=== PATIENT | female | born 1945 ===

== ENCOUNTER 2016-05-23 13:55 | Observation (INO) | payer MEDICARE, OTHER ==
--- NOTE | 2016-05-23 14:13 | CP.PCM.PN ---
Subjective - Date & Time of Evaluation Date of Evaluation: 05/23/16 Time of Evaluation: 13:50 - Subjective Subjective: PGY-1 Rapid response Note Rapid response was call at 1:40 PM. Patient was in oncology radiology to get a PET scan for a lung nodule. When the nurse was attempting to insert an IV patient began to feel lightheaded with darkening vision. Patient was seated in a chair at the time of the event, she did not have LOC. There was no trauma. Rapid response was called. Patients vitals were stable. At 1:50 patient was taken to the ED. Patients vitals BP was 118/61, pulse was 72, SaO2 97. Patient states that the vision changes and lightheadedness was gone and she felt well. Objective - Constitutional Appears: No Acute Distress - Head Exam Head Exam: ATRAUMATIC, NORMOCEPHALIC - Eye Exam Eye Exam: Normal appearance - ENT Exam ENT Exam: Mucous Membranes Moist - Respiratory Exam Respiratory Exam: Clear to Ausculation Bilateral, NORMAL BREATHING PATTERN. absent: Rhonchi, Wheezes, Respiratory Distress - Cardiovascular Exam Cardiovascular Exam: REGULAR RHYTHM. absent: Tachycardia, Murmur - GI/Abdominal Exam GI & Abdominal Exam: Soft, Normal Bowel Sounds. absent: Distended, Firm, Guarding, Tenderness - Extremities Exam Extremities Exam: Pedal Edema. absent: Normal Inspection - Neurological Exam Neurological Exam: Alert, Awake, Oriented x3 - Skin Skin Exam: Dry, Intact, Normal Color, Warm Assessment and Plan - Assessment and Plan (Free Text) Assessment: 70 yo female had rapid response called for near syncope. Patient presented for outpatient PET scan. Patients vitals were stable and her vision changes, lightheadedness spontaneously resolved and the patient was taken to the Emergency department for further work up.
[2016-05-23] MEDS ORDERED: Sodium Chloride 0.9% 1,000 ML IV ONE (14:16)
[2016-05-23 14:24] LABS: ADD MANUAL DIFF? NO
[2016-05-23 14:26] LABS: BASO # 0.02 K/mm3 (0.0-2.0); BASO % 0.2 % (0.0-3.0); EOS # 0.1 (0.0-0.7); EOS % 1.5 % (1.5-5.0); GRAN # 4.94 (1.4-6.5); GRAN % 54.7 % (50.0-68.0); HEMATOCRIT 37.8 % (36.0-48.0); LYMPH # 3.4 (1.2-3.4); LYMPH % 37.6 % (22.0-35.0); MEAN CELL VOLUME 87.7 fL (80.0-105.0); MEAN CORPUSCULAR HEMOGLOBIN 29.5 pg (25.0-35.0); MEAN CORPUSCULAR HGB CONC 33.6 g/dl (31.0-37.0); MEAN PLATELET VOLUME 10.3 fl (7.0-11.0); MONO # 0.5 (0.1-0.6); PLATELET COUNT 316 10^3/uL (120.0-450.0); RED CELL DISTRIBUTION WIDTH 13.8 % (11.5-14.5)
[2016-05-23 14:37] LABS: ALKALINE PHOSPHATASE 85 U/L (38-133); ALT/SGPT 13 U/L (7-56); AST/SGOT 31 U/L (15-39); BILIRUBIN,TOTAL 0.7 mg/dL (0.2-1.3); BLOOD UREA NITROGEN 18 mg/dL (7-21); CALCIUM 9.3 mg/dL (8.4-10.5); CARBON DIOXIDE 26 mmol/L (21-33); CHLORIDE 102 mmol/L (98-107); GFR AFRICAN-AMERICAN > 60; GLUCOSE,RANDOM 83 mg/dL (70-110); POTASSIUM 3.9 mmol/L (3.6-5.0); SODIUM 139 mmol/L (132-148); TOTAL PROTEIN 7.8 g/dL (5.8-8.3)
[2016-05-23 14:39] LABS: INR 1.06 (0.93-1.08); PARTIAL THROMBOPLASTIN TIME 27.5 Seconds (23.7-30.8)
[2016-05-23 14:48] LABS: TROPONIN I < 0.01 ng/mL
--- NOTE | 2016-05-23 15:01 | RAD ---
HISTORY: admission COMPARISON: No prior. FINDINGS: LUNGS: A right upper lobe 2 cm pulmonary nodule /mass is suggested . Pro asymmetrical prominent left basal nipple shallow versus 2nd nodule PLEURA: No significant pleural effusion identified, no pneumothorax apparent. CARDIOVASCULAR: Top-normal save OSSEOUS STRUCTURES: Thoracic spondylosis VISUALIZED UPPER ABDOMEN: Normal. OTHER FINDINGS: None. IMPRESSION: Right upper lobe 2 cm pulmonary nodule/mass. Malignancy needs to be considered. Follow-up CT chest imaging recommended The reason for this exam is admission. Findings were directly discussed with Dr. Luis Alberto Rawls in the emergency room on 05/23/2016 at approximately 3 o
--- NOTE | 2016-05-23 15:24 | ED PDOC ---
Arrival/HPI - General Chief Complaint: Syncope Time Seen by Provider: 05/23/16 14:09 Historian: Patient - History of Present Illness Narrative History of Present Illness (Text): 05/23/16 16:15 70yo female with history of Osterporosis brought to ED from PET scan for near syncopal episode. Per the PET tech, pt suddenly had a near syncopal episode, after he injected NS in preparation of doing a PET scan. she noted headache for two days. states she has been dizzy for the past two days. PT states she was seen at [facility] last week for headache left arm numbness and was discharged after serial test. States she was referred for PET scan because nodule was noted on her chest CT last week. She denies chest pain, SOb, nausea, vomiting, focal neurological deficit, any other complaint. Past Medical History - Provider Review Nursing Documentation Reviewed: Yes - Infectious Disease Hx of Infectious Diseases: None - Tetanus Immunization Tetanus Immunization: Unknown - Reproductive Menopause: Yes - Cardiac Hx Cardiac Disorders: No - Neurological Hx Neurological Disorder: No - HEENT Hx Cataracts: No - Renal Hx Renal Disorder: No - Hematological/Oncological Hx Anemia: Yes - Musculoskeletal/Rheumatological Hx Falls: No - Psychiatric Hx Anxiety: Yes Hx Substance Use: No - Anesthesia Hx Anesthesia: No Family/Social History - Physician Review Nursing Documentation Reviewed: Yes Family/Social History: Unknown Family HX Smoking Status: Former Smoker Hx Alcohol Use: No Hx Substance Use: No Allergies/Home Meds Allergies/Adverse Reactions: Allergies latex Allergy (Verified 05/23/16 14:20) RASH Home Medications: Home Meds Medication Instructions Recorded Confirmed Raloxifene [Evista] 60 mg PO QOTHERDAY 05/23/16 05/23/16 Review of Systems - Physician Review All systems were reviewed & negative as marked: Yes - Review of Systems Constitutional: Normal Eyes: Normal ENT: Normal Respiratory: Normal Cardiovascular: Normal Gastrointestinal: Normal Genitourinary Female: Normal Musculoskeletal: Normal Skin: Normal Neurological: Headache, Dizziness. absent: Focal Weakness, Gait Changes, Speech Changes, Facial Droop Endocrine: Normal Hemo/Lymphatic: Normal Psychiatric: Normal Physical Exam Vital Signs Reviewed: Yes Vital Signs Temp Pulse Resp BP Pulse Ox 05/23/16 15:55 81 20 139/71 98 05/23/16 13:55 98.4 F 70 20 128/80 100 Temperature: Afebrile Blood Pressure: Normal Pulse: Regular Respiratory Rate: Normal Appearance: Positive for: Well-Appearing, Non-Toxic, Comfortable Pain Distress: None Mental Status: Positive for: Alert and Oriented X 3 Finger Stick Blood Glucose: 84 - Systems Exam Head: Present: Atraumatic, Normocephalic Pupils: Present: PERRL Extroacular Muscles: Present: EOMI Conjunctiva: Present: Normal Mouth: Present: Moist Mucous Membranes Neck: Present: Normal Range of Motion Respiratory/Chest: Present: Clear to Auscultation, Good Air Exchange. No: Respiratory Distress, Accessory Muscle Use Cardiovascular: Present: Regular Rate and Rhythm, Normal S1, S2. No: Murmurs Abdomen: Present: Normal Bowel Sounds. No: Tenderness, Distention, Peritoneal Signs Back: Present: Normal Inspection Upper Extremity: Present: Normal Inspection. No: Cyanosis, Edema Lower Extremity: Present: Normal Inspection. No: Edema Neurological: Present: GCS=15, CN II-XII Intact, Speech Normal, Motor Func Grossly Intact, Normal Sensory Function, Normal Cerebellar Funct, Norm Deep Tendon Reflexes, Memory Normal, Normal 2Pt Descrimination, Other (No focal neurological deficit) Skin: Present: Warm, Dry, Normal Color. No: Rashes Psychiatric: Present: Alert, Oriented x 3, Normal Insight, Normal Concentration Medical Decision Making ED Course and Treatment: 05/24/16 00:56 PT presented for stated history. She was AAO x3 in ED. Neurological intact. Lab was unremarkable. Head CT negative. Pt will be placed on OBS for near syncope Case was NITIN Morales. He accepted pt into his service. Result and Plan was DW the pt and she agreed. - Lab Interpretations Lab Results: 05/23/16 14:05 05/23/16 14:05 Lab Results 05/23/16 14:05: WBC 9.0, RBC 4.31, Hgb 12.7, Hct 37.8, MCV 87.7, MCH 29.5, MCHC 33.6, RDW 13.8, Plt Count 316, MPV 10.3, Gran % 54.7, Lymph % (Auto) 37.6 H, [place] % (Auto) 6.0, Eos % (Auto) 1.5, Baso % (Auto) 0.2, Gran # 4.94, Lymph # 3.4 , [place] # 0.5, Eos # 0.1, Baso # 0.02, PT 11.4, INR 1.06, APTT 27.5, Sodium 139, Potassium 3.9, Chloride 102, Carbon Dioxide 26, Anion Gap 15, BUN 18, Creatinine 0.8, Est GFR ( Amer) > 60, Est GFR (Non-Af Amer) > 60, Random Glucose 83, Calcium 9.3, Total Bilirubin 0.7, AST 31, ALT 13, Alkaline Phosphatase 85, Troponin I < 0.01, Total Protein 7.8, Albumin 3.8, Globulin 4.0 , Albumin/Globulin Ratio 1.0 L - RAD Interpretation Radiology Orders: 05/23/16 14:15 CHEST PORTABLE [RAD] Stat 05/23/16 15:01 HEAD W/O CONTRAST [CT] Stat - EKG Interpretation Interpreted by ED Physician: Yes (NSR @71bpm) - Medication Orders Current Medication Orders: Aspirin (Ecotrin) 325 mg PO DAILY GUILLERMO Atorvastatin Calcium (Lipitor) 40 mg PO DIN [facility] Last Admin: 05/23/16 23:39 Dose: 40 MG Enoxaparin Sodium (Lovenox) 40 mg SC DAILY [facility] PRN Reason: Protocol Last Admin: 05/23/16 23:39 Dose: 40 MG Subcutaneous Administrations Document 05/23/16 23:39 [facility] (Rec: 05/23/16 23:39 [id number]) Charges for Administration # of Subcutaneous Administrations 1 Sodium Chloride (Sodium Chloride 0.45%) 1,000 mls @ 80 mls/hr IV .[id number] [facility] Last Admin: 05/23/16 23:38 Dose: 80 MLS/HR eMAR Start Stop Document 05/23/16 23:38 [facility] (Rec: 05/23/16 23:38 [id number]) Intravenous Solution Start Date 05/23/16 Start Time 23:38 Levofloxacin (Levaquin) 250 mg PO DAILY [facility] Last Admin: 05/23/16 23:39 Dose: 250 MG Pantoprazole Sodium (Protonix Ec Tab) 40 mg PO ACB [facility] Tramadol/Acetaminophen (Ultracet 37.5/325 Mg) 1 tab PO Q6H PRN PRN Reason: Headache Last Admin: 05/23/16 22:17 Dose: 1 TAB MAR Pain Assessment Document 05/23/16 22:17 [facility] (Rec: 05/23/16 22:17 [id number]) Pain Reassessment Is this a pain reassessment? No Sleep Is patient sleeping during reassessment? No Presence of Pain Presence of Pain Yes Discontinued Medications Sodium Chloride (Sodium Chloride 0.9%) 1,000 mls @ 250 mls/hr IV .Q4H ONE Stop: 05/23/16 18:15 Last Admin: 05/23/16 14:30 Dose: 250 MLS/HR eMAR Start Stop Document 05/23/16 14:30 [facility] (Rec: 05/23/16 14:30 [facility] [id number]) Intravenous Solution Start Date 05/23/16 Start Time 14:30 End Date 05/23/16 End time 16:30 Total Infusion Time 120 Disposition/Present on Arrival - Present on Arrival Any Indicators Present on Arrival: No History of DVT/PE: No History of Uncontrolled Diabetes: No Urinary Catheter: No History of Decub. Ulcer: No History Surgical Site Infection Following: None - Disposition Have Diagnosis and Disposition been Completed?: Yes Diagnosis: Near syncope Disposition: HOSPITALIZED Disposition Time: 14:00 Patient Problems: Current Active Problems Problem Status Diagnosed Near syncope Acute Condition: FAIR
--- NOTE | 2016-05-23 15:36 | CT ---
PROCEDURE: CT HEAD WITHOUT CONTRAST. HISTORY: dizziness COMPARISON: None available. TECHNIQUE: Axial computed tomography images were obtained through the head/brain without intravenous contrast. Radiation dose: Total exam DLP = 734 mGy-cm. FINDINGS: HEMORRHAGE: No intracranial hemorrhage. BRAIN: No mass effect or edema. No atrophy or chronic microvascular ischemic changes. VENTRICLES: Unremarkable. No hydrocephalus. CALVARIUM: Unremarkable. PARANASAL SINUSES: Unremarkable as visualized. No significant inflammatory changes. MASTOID AIR CELLS: Unremarkable as visualized. No inflammatory changes. OTHER FINDINGS: None. IMPRESSION: No acute findings
--- NOTE | 2016-05-23 17:22 | CARD ---
APPROVED REPORT EKG Measurement Heart [id number] [id number] <Conclusion> Normal sinus rhythm Normal ECG
[2016-05-23 19:15] VITALS: BMI 28.1
--- NOTE | 2016-05-23 19:18 | CON ---
DATE: 05/23/2016 HISTORY OF PRESENT ILLNESS: This is a 70-year-old female with past medical history of osteoporosis. The patient went to have a PET scan because of some nodule which was noted on the chest CT last week . The patient had a syncopal episode while they were preparing her to go into the CAT scan. She fel t dizzy, now some headache. CAT scan of the head was done, which was negative. The patient is able to eat, not in distress. PAST MEDICAL HISTORY: As above. ALLERGIES: LATEX. REVIEW OF SYSTEMS: A 10-point review of system was negative. Her son and daughter are at bedside. PHYSICAL EXAMINATION: VITAL SIGNS: Blood pressure 128/18. HEENT: Normocephalic, atraumatic. NECK: Supple. NEUROLOGIC: Alert, awake, oriented x 3. No aphasia. Cranial nerves II-XII were intact. Pupils equ al and reactive. EOM intact. Visual arciniega full. No facial asymmetry. Tongue midline. Motor exam ination: Moves all the extremities equally. Tone normal. Deep tendon reflexes 1+. Both plantars a re downgoing. Sensory appears intact. Cerebellar gait deferred. IMPRESSION: Presyncopal episode. The patient's CAT scan of the head was done, which was reported ne albertina. LABORATORY: WBC 9, hemoglobin 12.7, hematocrit 37.8, platelets 316. Sodium 139, potassium 3.9, chlo ride 102, CO2 of 26, glucose 83, BUN 18 and creatinine 0.8. PLAN: Workup in progress. We will do EEG and further management after the results of above tests. Alli Mariano MD cc: [id number] TT: 05/23/2016 19:17:14 Confirmation # [id number] Dictation # [id number] mn
[2016-05-23 19:40] VITALS: O2SAT 97
[2016-05-23 20:18] LABS: URINE BILIRUBIN NEGATIVE (NEGATIVE); URINE BLOOD TRACE-INTACT (NEGATIVE); URINE GLUCOSE (UA) NEGATIVE (NEGATIVE); URINE KETONE 15 mg/dL (NEGATIVE); URINE LEUKOCYTE ESTERASE TRACE Leu/uL (NEGATIVE); URINE PROTEIN NEGATIVE mg/dL (<30 mg/dL); URINE UROBILINOGEN 0.2 E.U./dL (<1 E.U./dL)
[2016-05-23 20:21] LABS: URINE APPEARANCE CLEAR (CLEAR); URINE COLOR YELLOW (YELLOW)
[2016-05-23 20:48] LABS: URINE BACTERIA SMALL (NEG)
[2016-05-23] MEDS ORDERED: TraMADol/Apap 37.5/325 mg Tab PO PRN (21:19)
[2016-05-23 22:14] LABS: CHOLESTEROL 222 mg/dL (130-200)
[2016-05-23 22:34] LABS: FREE T4 1.22 ng/dL (0.78-2.19); T4 8.3 ug/dL (5.5-11.0)
[2016-05-23 22:46] LABS: TROPONIN I < 0.01 ng/mL
[2016-05-23 22:47] LABS: THYROID STIMULATING HORMONE 0.81 mIU/mL (0.46-4.68)
[2016-05-23] MEDS: Sodium Chloride 0.45% 1,000 ML IV SCH (23:38)
[2016-05-23] MEDS: Enoxaparin 40 mg Syringe SC SCH (23:39)
[2016-05-24] MEDS ORDERED: Pantoprazole 40 mg EC Tab PO SCH (07:30)
--- NOTE | 2016-05-24 08:01 | HP ---
The patient is a 70-year-old female who came today for outpatient PET scan in the PET scan area, and while the patient was having an intravenous placed and was getting prior to the PET scan, the p atient complained of feeling of cold feeling in the body, and room spinning, and the patient stated t hat she lost consciousness for unknown duration of time. The patient also complained of headache radha or to that. Rapid response was called at this time while patient experienced the above symptoms. The patient came for a PET scan for evaluation of a pulmonary nodule, and while the patient was in th e process of getting intravenous injected, started to develop cold feeling in the body with room spin wade, and the patient stated that she did lose consciousness for unknown amount of time. The patient denies any bowel or bladder incontinence, denies any tongue biting. The patient was then referred to the Emergency Room. The patient was evaluated by the PA. In additi on, the patient also stated that she has not eaten a proper meal in more than 24 hours. The patient also complained of dizziness. The patient also stated that she has multiple tests done in the last [place] or so at [facility] by her primary care physician. CODE STATUS: Full Code. LIVING WILL/ADVANCE DIRECTIVE: None. ALLERGIES: LATEX. Height is 5 feet 1 inch. BMI is 28.2. HOME MEDICATIONS: Evista 60 mg every other day. The patient's pharmacy is [facility] on [facility]. SOCIAL HISTORY: The patient is a former smoker. Denies alcohol, denies drug use. Denies communica ble transmissible disease. The patient is postmenopausal. The patient is 6, para 6. The patient's last mammogram was.. .last mammogram was done...last mammogram was done 11/2015. FAMILY HISTORY: Positive for father dying of colon cancer, and mother dying of Alzheimer's. One of the sisters had renal cell carcinoma. OCCUPATIONAL HISTORY: The patient is a retired branch banker. PAST MEDICAL HISTORY: The patient has been recently undergoing in the last month or 2, has been unde rgoing evaluation for her right lung mass. The patient's past medical history is also significant fo r osteopenia, osteoporosis, history of...history of...history of osteopenia, osteoporosis, history of right lung mass, history of. Past medical history also significant for history of...history of...h istory of 50-69% stenosis of the right internal carotid artery and 50-69% stenosis of the left commander internal affairs al carotid artery which was done in 09/2013. The patient had a repeat carotid Doppler done in ...05/10/2016, which shows...which shows...which was negative for hemodynamically significant stenosi s. The patient's past medical history is also significant for history of osteoarthritis of the knees , history of...history of...history of left breast focal asymmetry, history of...history of...history of diagnostic mammogram done which was negative, history of...history of...history of...history of e ndoscopy and colonoscopy, which according to the patient was negative, history of...history of...hist ory of...history of...history of...history of...history of...history of chronic microvascular ischemi c disease of the brain, history of...history of...history of...history of...history of scattered fibr oglandular densities of the breast. 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 History of...history of...history of...history of generalized cerebral cortical atrophy of the brain on the C T head. History of right upper lobe nodular density, history of...history of negative MRI of the bra in in 05/10/2016, history of...history of right upper lobe pleural-based nodule in mass measuring 2 c m x 1.4 cm and 1.4 cm, with coarse calcifications in the central portion. History of a right upper l kate arciniega 7 mm nodule and a 2 mm left upper lung calcified nodule. History of cardiomegaly, history of...history of degenerative joint disease of the cervical spine. History of...history of...history of...history of...history of...history of...history of...history of normal echocardiogram done in . The patient's past medical history is also significant for history of left upper extremity numbness, and visual problem for which patient was admitted to [facility] in early part of 04/26 017. The patient was seen by hematology/oncology. Their recommendation was to get a PET scan. The patient's past medical history is also significant for osteoarthritis, history of...history of lung m ass, history of...history of...history of questionable sinusitis, history of...history of...history o f being admitted to [facility] in 05/10 for left upper extremity numbness, tingling, and headach e. The patient's past medical history is also significant for history of vertigo. The patient, as mentioned, was initially seen in the PET scan. Rapid response was called, evaluative measures was done by the medical delivery driver and then patient was transferred to the Emergency Room for evaluation. The patient is seen on telemetry, room 272, bed 2. The patient is lying in the bed. VITAL SIGNS: T-max 98.3 to 98.7. Telemetry shows normal sinus rhythm, heart rate 81-79, blood press ure 128/80, 129/71, 139/78, respirations 20-22, O2 sat 97%. HEAD EXAMINATION: Normocephalic, atraumatic. HENT EXAMINATION: Shows pink conjunctivae, anicteric sclerae. No oropharyngeal lesion. Questionable soft carotid bruit. CHEST EXAMINATION: Kyphosis. LUNG EXAMINATION: Shows no rales, crackles, or wheezing. CARDIOVASCULAR EXAMINATION: S1, S2, regular rhythm. No audible murmur, gallop, or rub at this time. ABDOMEN: Soft, positive bowel sounds. GENITALIA: Female. RECTAL EXAMINATION: Deferred. EXTREMITIES: Shows no pitting edema, no calf tenderness, no Homans signs. VASCULAR EXAMINATION: Palpable pulses. MUSCULOSKELETAL EXAMINATION: Shows a body mass index of 28.2. NEUROLOGIC: Cranial nerves II-XII intact. Gait Examination: Intact. Romberg sign is negative. He el-toe-gait is intact. Plantars are downward, DTRs are 2+. Idgxig-huvs-okclqp coordination and from ntmf-ocyw-mz-hopkins is intact. Coordination is intact. Upper strength and upper extremity, lower ext remity motor strength is 5/5 in upper and lower extremity. There is no facial asymmetry noted. No n ystagmus noted, extraocular movements are intact. No neck rigidity. Plantars are downward. PSYCHIATRIC EXAMINATION: Negative for anxiety, depression. Negative for suicidal or homicidal ideat ion. Negative for auditory or visual hallucinations. DIAGNOSTICS: CBC is within normal limits. PT, PTT is normal. Chemistry: Troponin, LFTs are normal . Urine pH 6.0, specific gravity 1.215, with 15 ketones, trace blood, trace leukocyte esterase, smal l bacteria. The patient had a chest x-ray done. The patient had a chest x-ray done which shows a right upper lob e 2 cm pulmonary nodule with a left basal 2nd nodule. The patient's CT of the head was...CT of the h ead was done which was reported to be negative. EKG done in the Emergency Room shows sinus rhythm, b aseline artifact. The patient was seen in the Emergency Room by the physician surgeon's assistant. The hillary dent was seen later on during the rapid response by the medical delivery driver. The patient was evaluated in the ER. The patient was bernardino...Presently, the patient is admitted to tel emetry observation. IMPRESSION AND PLAN: 1. Syncopal event, etiology undetermined. 2. Questionable vasovagal syncope. 3. Questionable vertigo. 4. Possible hypoglycemia. 5. History of right upper lobe and left lung pulmonary nodule and mass. 6. Microscopic hematuria, and pyuria, and bacteriuria. 7. Questionable history of carotid stenosis. 8. Right upper lobe 2 cm pulmonary nodule, and left basal nodule. 9. History of questionable carotid stenosis. 10. History of chronic microangiopathic small vessel ischemic disease of the brain with global parenc hymal volume loss. 11. History of osteoporosis. PLAN: At this time, the patient is admitted to telemetry observation. Repeat cardiac enzymes are or dered. Thyroid panel, lipid panel, B12, folate, vitamin D hydroxy, Lyme titers, RPR, ESR, C-reactive protein has been ordered. The patient was seen by neurology; their recommendation noted. EEG order ed. The patient has been ordered a urine culture. RPR ordered. The patient is started on half norm al saline at 80 mL, Ecotrin 325 daily, Lovenox 40 mg daily for DVT prophylaxis, Protonix 40 daily for GI prophylaxis. The patient is also started on Ultracet 1 tab q. 6 p.r.n. for headache. The hillary dent is ordered an MRA of the carotid, EEG ordered by the neurologist. The patient has been put on neur o checks, orthostatic hyp...orthostatic vital signs have been ordered. The patient will have repeat EKG done in the morning. In addition, the patient will be ordered cardiology consultation for evalua tion of the patient's symptoms. The patient in 2R. The patient was explained about the details of her medical condition, which she a cknowledged and understands. The patient was also advised the need for further diagnostic therapeuti c intervention depending upon the patient's condition and response to therapeutic intervention. Was discussed and explained to the patient at length in layman's language. All questions and concerns an swered to the patient's satisfaction. At present, patient is admitted to telemetry observation pending further testing, and diagnostic and therapeutic intervention, and evaluation...further evaluation by neurology and cardiology. Dictated and electronically signed, not read. Maikol Morales MD cc: [id number] TT: 05/23/2016 22:55:28 jn
[2016-05-24 08:25] LABS: CARDIO CRP(R) 9.5 mg/L (())
[2016-05-24] MEDS: Enoxaparin 40 mg Syringe SC SCH (09:44)
[2016-05-24] MEDS: Sodium Chloride 0.45% 1,000 ML IV SCH (09:45)
[2016-05-24] MEDS ORDERED: Aspirin 325 mg EC Tablets PO SCH (10:00)
[2016-05-24] MEDS ORDERED: DiphenhydrAMINE 50 mg/ml Inj IM ONE (10:46)
--- NOTE | 2016-05-24 11:43 | CON ---
DATE: 05/24/2016 CHIEF COMPLAINT: Follow up for syncope. SUBJECTIVE: The patient is seen and examined at the bedside. She has history of osteoporosis. She was getting a PET scan apparently for her lung nodule and when she was injected with normal saline, s he had panicked and had a syncopal event. No history of seizures, no history of trauma to the brain. No history of meningitis or febrile seizures as a child. She gets headaches at times as well as he r left arm numbness which she was seen at [facility] in which her workup was negative. Her righ t shoulder pain is secondary to lifting up heavy bottles of water a few weeks ago which was deemed it was tendinitis which was relieved with ibuprofen. She still has moderate right shoulder pain. Othe rwise, no change in sense of vision, taste or smell. No confusional episodes. Her CT head showed no acute intracranial abnormalities. PAST MEDICAL HISTORY: History of osteoporosis and menopause. REVIEW OF SYSTEMS: A 14-point review of systems is negative except for the HPI. FAMILY HISTORY: Noncontributory. SOCIAL HISTORY: No illicit drug use, smoking, or ETOH abuse. ALLERGIES: ALLERGIC TO LATEX, GIVES A RASH. MEDICATIONS: Reviewed via nurse's reconciliation sheet. PHYSICAL EXAMINATION: VITAL SIGNS: Temperature of 98.2, pulse rate of 82, blood pressure 133/77, respiratory rate of 20, o xygen saturation 97% via room air. GENERAL: The patient is sitting up in bed in no acute distress. HEENT: Atraumatic, normocephalic. PERRLA. Extraocular muscles intact. NECK: Supple, no JVD, no adenopathy noted. LUNGS: Clear to auscultation. No adventitious sounds. HEART: S1, S2, normal rate and rhythm. No murmurs, rubs, or gallops. ABDOMEN: Soft, nontender, nondistended. Bowel sounds are present. EXTREMITIES: No clubbing, no cyanosis. Peripheral pulses 2+ felt bilaterally. NEUROLOGIC: The patient is alert, oriented to person, place, month and year. Speech is fluent witho ut any errors. Cranial nerves II-XII are intact. MOTOR: Strength is 5/5 in both upper and lower extremities. Toes are downgoing bilaterally. SENSORY: Light touch, pinprick, proprioception, vibration is intact. DTRs are 2+ throughout. COORDINATION: [id number]-bz-xeqx intact. GAIT: Deferred for now. LABORATORIES: Sodium is 139, potassium 3.9, chloride of 102, carbon dioxide 26, BUN of 18, creatinin e 0.8. Random glucose of 83. Her CRP is 9.5, cholesterol is 222, LDL is 137. B12 is pending. Thyr oid profile is normal. ASSESSMENT AND PLAN: This is a 70-year-old with history of menopause, anxiety, osteoporosis, who had a syncopal event after having an injection of normal saline when she was brought for her PET scan wh en she panicked and had passed out. The syncope is more of a vasovagal event from underlying mild an xiety. This is not a seizure at all. Therefore, EEG is not warranted in this case. There is no his tory of any trauma or remote confusional episodes at all, so therefore, we will hold off the EEG for now. Her neurological exam is currently normal. At this time, recommend: 1. Aspirin 81 mg and Lipitor 40 mg p.o. daily for stroke prevention. 2. She can continue with Ultracet 1 tab p.o. q. 6 hours p.r.n. for headache as well as for her right shoulder pain. 3. She can continue with her further medical management and workup. She has elevated cholesterol; t herefore, she should to be on Lipitor because her cholesterol is 222. 4. Get a B12 level and continue with current present medical management.. No further neurological w orkup needed at this time except will be getting an MRA of the neck to assess her vasculature in her carotid areas. At this time, continue with current present medical management. Thank you for this followup. Danie Mariano MD cc: [id number] TT: 05/24/2016 11:43:19 Confirmation # [id number] Dictation # [id number] tn
--- NOTE | 2016-05-24 12:28 | CON ---
DATE: 05/24/2016 HISTORY OF PRESENT ILLNESS: The patient is a 70-year-old woman who became lightheaded while they wer e manipulating her IV yesterday. The patient has no previous cardiac history. Her stress test in the past was unremarkable. Her echo cardiogram done earlier this month is within normal limits. PAST MEDICAL HISTORY: Includes a history of hypercholesterolemia. Negative chest pain. Negative shortness of breath. Negative palpitations. Negative diabetes mellit us. SOCIAL HISTORY: Negative smoker. REVIEW OF SYSTEMS: A 14-point review of systems was reviewed in detail. No cardiac symptomatology i s noted. PHYSICAL EXAMINATION: VITAL SIGNS: Stable. No orthostatic changes are noted. NECK: Negative JVD, negative bruits. LUNGS: Without rales. HEART: Reveals S1, S2. EXTREMITIES: Without edema. EKG is within normal limits. LABORATORIES: Troponins are negative x 2. Hemoglobin is 12. IMPRESSION: 1. Likely vasovagal cause of her near syncope. 2. Hypercholesterolemia 3. No evidence for a cardiac cause of her symptoms. Given these findings, the patient can be discharged today. We will discontinue telemetry. I have ad vised the patient to follow up with her primary care doctor whose sister is a supervisory air intercept controller at [employer]. Eliot Reece MD cc: [id number] TT: 05/24/2016 12:28:08 Confirmation # [id number] Dictation # [id number] tn
[2016-05-24 12:35] LABS: FOLATE 18.4 ng/mL
--- NOTE | 2016-05-24 12:45 | DS ---
The patient is seen in room 272, bed 2, with patient's daughter at bedside. Overnight nurse's notes were reviewed. The patient was found to be alert, awake , responsive. The patient slept overnight without any issues. The patient had episodic complaints of headache, which was resolved. The patient's nurse's notes were reviewed. PHYSICAL EXAMINATION: VITAL SIGNS: T-max afebrile. Telemetry normal sinus rhythm, heart rate 71-82, blood pressure 113/63, 133/77, 139/78, respirations 20. Orthostatic blood pressures were noted. O2 sat 97%. HEAD: Normocephalic, atraumatic. HEENT: Shows pink conjunctivae, anicteric sclerae. No oropharyngeal lesion. NECK: Questionable soft carotid bruit. CHEST: Kyphosis. LUNGS: Shows no rales, crackles, or wheezing. CARDIOVASCULAR: Shows S1, S2, regular rhythm. ABDOMEN: Soft, positive bowel sounds. GENITALIA: Female. RECTAL: Deferred. EXTREMITIES: Shows no pitting edema, no calf tenderness, no Hermes sign. NEUROLOGIC: The patient is alert, awake, oriented x 3. Cranial nerves II-XII grossly intact. GAIT: Independent. Romberg sign is negative. VASCULAR: Motor strength is 5/5 in upper and lower extremities. PSYCHIATRIC: Negative for anxiety, depression. Negative for suicidal or homicidal ideation. Negative for auditory or visual hallucination. DIAGNOSTICS: ESR 36, which is slightly elevated. Cardiac enzymes negative. C- reactive protein is 9.5. Cholesterol 222, LDL 137, HDL 60. TSH is normal at 0.81 and T4 8.3. Urine culture pending. The patient's EKG done this morning shows sinus rhythm, baseline artifact, no ST elevation or depression noted. The patient was seen by neurology. The patient's EEG was canceled by Dr. Danie Mariano. The patient's MRA of the carotid is pending. Vitamin D level is pending. Lyme titers are pending. Urine cultures are pending. RPR is pending. FINAL IMPRESSION, PLAN, AND DISCHARGE DIAGNOSES: 1. Questionable syncope versus near syncope with episode of dizziness. 2. Questionable vasovagal syncope. 3. History of possible vertigo. 4. History of right upper lobe, left lung pulmonary nodule and mass. 5. Questionable urinary tract infection with bacteriuria, pyuria, microscopic hematuria. 6. Questionable history of bilateral carotid stenosis. 7. History of right upper lobe 2 cm pulmonary nodule and left base nodule. 8. 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 9. History of osteoporosis, osteopenia. 10. Elevated ESR of 36. 11. Elevated Cardiac and High sensitivity C-reactive protein. 12. Hypercholesterolemia with elevated LDL. 13. Status post rapid response. 14. Dyslipidemia. 15. Possible Lyme Disease with Positive Lyme IgM Western Blot antibodies. 16. Hypovitaminosis-D 17. 50% Left Internal Carotid Artery Stenosis. PLAN: At this time, pending tests are vitamin D25 hydroxy, Lyme disease titer, urine cultures, RPR and MRA of the carotid. CURRENT MEDICATIONS: IV fluid 0.45 at 80 mL an hour. The patient has been ordered Benadryl 50 IM and Ativan 1 mg p.o. prior to MRI because of claustrophobia. The patient is on aspirin 325 daily, Levaquin 250 daily, Lipitor 40 mg daily, Protonix 40 mg daily, Tramadol, Ultracet 1 tablet q. 6 p.r.n. MRA of the neck without contrast is pending at this time. The patient is on heart healthy diet. The patient will be considered for discharge today after cleared by neurology and if the MRA of the carotid is negative. The patient has been considered for discharge after the neurology clearance and after MRA of the carotid. DISCHARGE MEDICATIONS: Aspirin 325 daily, Lipitor 40 mg daily, Levaquin 250 daily for #7, Evista 60 mg every other day to be resumed at home medication, Ultracet 1 tablet q. 6 p.r.n. #20.,Vibramycin 100 mg bid x 21 days,DRISDOL 50,000 UNITS WEEKLY. The patient is to be discharged home after cleared by neurology and after MRA of the neck is done. DISCHARGE FOLLOWUP: With Dr. Shannen Matamoros within 1 week. DISCHARGE MEDICATIONS: As per ambulatory orders sent electronically to the pharmacy. Copy of the low cholesterol diet to be given to the patient upon discharge. The patient's condition, diagnosis, test results, all details were discussed and explained to the patient and the patient's daughter at length. All questions and concerns answered. Time spent in the entire discharge process, more than 45 minutes. Dictated and electronically signed, not read. Maikol Morales MD cc: [id number] TT: 05/24/2016 12:44:21 rn [id number]
[2016-05-24 12:46] LABS: 18 KD (IGG) BAND Nonreactive (()); 23 KD (IGG) BAND Nonreactive (()); 23 KD (IGM) BAND Reactive (()); 28 KD (IGG) BAND Nonreactive (()); 30 KD (IGG) BAND Nonreactive (()); 39 KD (IGG) BAND Nonreactive (()); 39 KD (IGM) BAND Nonreactive (()); 41 KD (IGG) BAND Reactive (()); 41 KD (IGM) BAND Reactive (()); 45 KD (IGG) BAND Nonreactive (()); 58 KD (IGG) BAND Nonreactive (()); 66 KD (IGG) BAND Nonreactive (()); 93 KD (IGG) BAND Nonreactive (()); LYME DISEASE INTERP (IGG) Negative (Negative)
--- NOTE | 2016-05-24 14:55 | MRI ---
PROCEDURE: MR Angiography of the neck without contrast HISTORY: ??KENZIE COMPARISON: None available. TECHNIQUE: 3D [id number] angiography of the neck was performed. Rotating maximum intensity projection images of the cervical carotid and vertebral arteries were generated. The origins of the common carotid arteries were not visualized, which is a limitation inherent to the non-contrast time of flight technique. FINDINGS: RIGHT CAROTID ARTERIES: Common Carotid Artery: Normal. Carotid Bifurcation: Normal. Internal Carotid Artery:Normal. External Carotid Artery (proximal branches): Normal. LEFT CAROTID ARTERIES: Common Carotid Artery: Normal. Carotid Bifurcation: Normal. Internal Carotid Artery:Mild stenosis approximately 50 percent at the origin/proximal left internal carotid artery. External Carotid Artery (proximal branches): Normal. VERTEBRAL ARTERIES: Right Vertebral Artery: Normal. Left Vertebral Artery: Normal. OTHER FINDINGS: None. IMPRESSION: Mild stenosis at the origin /proximal left internal carotid artery. Otherwise no evidence of significant stenosis.
[2016-05-24 17:56] VITALS: BP 120/68; PULSE 70; RESP 18; TEMP 98.7
--- NOTE | 2016-05-24 18:29 | CARD ---
APPROVED REPORT EKG Measurement Heart [id number] MD [id number] <Conclusion> Normal sinus rhythm Normal ECG
[2016-05-25 10:25] LABS: LYME DISEASE SCREEN <0.90 index (())
[2016-05-28 17:07] LABS: LYME IGG NEGATIVE (NEGATIVE)
== END 2016-05-24 19:00 | disposition home or self-care (01) ==
LOC: ED 13:55 → ERH 15:05 → 2RSO 16:16
PROVIDERS: ADMIT Internal Medicine; ATTEND Internal Medicine
DX: R42 Dizziness and giddiness (principal); R91.1 Solitary pulmonary nodule; M81.0 Age-related osteoporosis without current pathological fracture; R70.0 Elevated erythrocyte sedimentation rate; E78.00 Pure hypercholesterolemia, unspecified; I65.22 Occlusion and stenosis of left carotid artery; E56.9 Vitamin deficiency, unspecified; Z78.0 Asymptomatic menopausal state; M75.91 Shoulder lesion, unspecified, right shoulder; F41.9 Anxiety disorder, unspecified; M17.0 Bilateral primary osteoarthritis of knee; R31.29 Other microscopic hematuria; N39.0 Urinary tract infection, site not specified
CPT/HCPCS: 70450; 70547; 71010; 80053; 80061; 81001; 82306; 82550; 82607; 82746; 84439; 84443; 84484; 85025; 85610; 85651; 85730; 86140; 86141; 86592; 86617; 86618; 87086; 93005; 96360; 96361; 96372; 99285; G0378; J1200; J1650; J7030; J7040